=== PATIENT | male | born 1955 | race Caucasian/White ===

== ENCOUNTER 2019-06-26 06:33 | Emergency (ER) | payer OTHER ==
[2019-06-26 06:39] VITALS: TEMP 98.1
[2019-06-26] MEDS ORDERED: HYDROMORPHONE HCL 2 MG/ML SOL IV ONE (06:56)
[2019-06-26] MEDS ORDERED: HYDROMORPHONE 1 MG/ML SYRINGE ONE (07:02)
[2019-06-26] MEDS ORDERED: SODIUM CHLORIDE 0.9% 1000 ML SOL IV SCH (09:00)
[2019-06-26 10:02] VITALS: O2SAT 98
[2019-06-26 11:00] VITALS: BP 101/64; PULSE 64; RESP 20
== END 2019-06-26 11:00 | disposition short-term general hospital (02) | DRG 536 ==
LOC: ED 06:33
DX: S32.810A Multiple fractures of pelvis with stable disruption of pelvic ring, initial encounter for closed fracture (principal); M25.552 Pain in left hip; W18.30XA Fall on same level, unspecified, initial encounter
CPT/HCPCS: 72192; 96365; 96366; 96374; 99283; 99285; J1170